=== PATIENT | female | born 1975 | race African-American/Black ===

== ENCOUNTER 2023-01-06 20:24 | Emergency (ER) | payer BC, MEDICAID ==
[~2023-01-06] VITALS: Ht 167.6 cm; Wt 102.0 kg
[2023-01-06 20:25] VITALS: BP 197/120; PULSE 105; RESP 18; TEMP 98.4; O2SAT 98
[2023-01-06] MEDS ORDERED: INSULIN REGULAR (HUMULIN R) 300UNITS/3ML VIAL SUBCUT ONE (20:45)
[2023-01-06] MEDS ORDERED: SODIUM CHLORIDE 0.9% 1,000 ML IV ONE (20:45)
== END 2023-01-07 00:33 | disposition home or self-care (01) ==
LOC: ER 20:24
DX: E11.65 Type 2 diabetes mellitus with hyperglycemia (principal); I10 Essential (primary) hypertension
CPT/HCPCS: 99283; 96360; 82962; 93005; 96372; J7030; J1815